=== PATIENT | male | born 1980 | race Hispanic/Latino ===

== ENCOUNTER 2019-03-15 18:09 | Emergency (ER) | payer SELFPAY ==
[~2019-03-15 18:09] MED LIST: Iopamidol-370 76% 500 ML 1 ML ONE
[2019-03-15 21:24] LABS: #Eosinphils 0.1 thou/uL (0.0-0.7); #Lymphocytes 1.5 thou/uL (1.20-3.40); #Monocytes 0.5 thou/uL (0.11-0.59); #Neutrophils 3.5 thou/uL (1.40-6.50); %Basophils 0.6 % (0.0-1.0); %Eosinophils 2.3 % (0.0-10.0); %Lymphocytes 26.4 % (21.0-51.0); %Monocytes 8.9 % (0.0-10.0); %Neutrophils 61.8 % (42.0-75.0); Hemoglobin 15.4 g/dL (14.0-18.0); Mean Corpuscular HGB CONC 35.1 g/dL (32.0-36.0); Mean Corpuscular Hemoglobin 30.6 pg (27.0-31.0); Mean Corpuscular Volume 87.1 fL (78.0-98.0); Mean Platelet Volume 9.6 fL (7.4-10.4); Platelet Count 132 thou/uL (130-400); RBC Distribution Width 11.5 % (11.5-14.5); Red Blood Cell (RBC) Count 5.02 mill/uL (4.70-6.10); White Blood Cell (WBC) Count 5.7 thou/uL (4.8-10.8)
[2019-03-15 21:36] LABS: Bilirubin Negative (Negative); Blood, Urine Negative (Negative); Clarity Clear (Clear); Glucose, Urine (Dipstick) Normal (Negative); Leukocyte Negative Leu/uL (Negative); Nitrite Negative (Negative); Protein, Urine (Dipstick) 10 mg/dL (Neg-Trace); Urobilinogen Normal mg/dL (Less than 2)
[2019-03-15 21:46] LABS: ALT (SGPT) 34 U/L (8-55); AST (SGOT) 20 U/L (5-34); Albumin 4.3 g/dL (3.5-5.0); Alkaline Phosphatase 103 U/L (40-110); Anion Gap 11 mmol/L (10-20); BUN (Urea Nitrogen) 15 mg/dL (8.9-20.6); Bilirubin, Total 0.6 mg/dL (0.2-1.2); Calc. Creatinine Clearance 0 mL/min (70-130); Calcium 9.4 mg/dL (7.8-10.44); Carbon Dioxide 28 mmol/L (22-29); Chloride 105 mmol/L (98-107); Estimated GFR-MDRD Greater than 90; Globulin 3.2 g/dL (2.4-3.5); Glucose 81 mg/dL (70-105); Lipase 20 U/L (8-78); Potassium 3.7 mmol/L (3.5-5.1); Protein, Total 7.5 g/dL (6.0-8.3); Sodium 140 mmol/L (136-145)
--- NOTE | 2019-03-15 23:15 | ULT ---
Exam: Bilateral testicular ultrasound with color and spectral Doppler imaging: HISTORY: Left testicular pain FINDINGS: Right testes measures 2.9 x 4.2 x 2.3 cm. Left testes measures 2.8 x 4.5 x 2.0 cm. Small bilateral hydroceles and small bilateral epididymal head cysts. Small right-sided epididymal ap pendix. No evidence for solid intratesticular mass. No evidence for testicular torsion. Borderline size left scrotal veins without definitive varicocele. IMPRESSION: Very small bilateral hydroceles and a small right-sided epididymal appendix and very small bilateral epididymal head cysts. No evidence for solid intratesticular mass or testicular torsion.
--- NOTE | 2019-03-16 00:01 | CT ---
EXAM: Abdomen and pelvic CT scan with contrast: HISTORY: Left-sided abdominal pain COMPARISON: None FINDINGS: The visualized lung bases are clear. Liver: Unremarkable. Gallbladder:Unremarkable. Pancreas:Unremarkable Spleen:Unremarkable. Adrenal glands:Unremarkable. Kidneys:No renal calculus or acute obstruction. No solid or cystic renal mass. No evidence for bowel obstruction. Normal-appearing retrocecal appendix. No evidence for acute appendicitis. The urinary bladder is unremarkable. Reproductive system:Unremarkable No abscess, adenopathy, or abnormal fluid collection within the abdomen or pelvis. Small right inguinal fat-containing hernia. IMPRESSION: Normal retrocecal appendix. Small fat-containing left inguinal hernia. No other acute process.
== END 2019-03-16 00:45 | disposition home or self-care (01) ==
LOC: EDBD 18:09 → ERS 18:09
DX: R10.12 Left upper quadrant pain (principal)
CPT/HCPCS: 36415; 74177; 76870; 80053; 81003; 83690; 85025; 93976; Q9967